=== PATIENT | male | born 2000 | race Two or more races ===

== ENCOUNTER 2024-10-05 10:09 | Inpatient (IN) | payer OTHER, MEDICAID ==
[~2024-10-05] VITALS: Ht 180.3 cm; Wt 125.8 kg
[2024-10-05 11:01] LABS: ALCOHOL, URINE DRUG SCREEN NEGATIVE (NEGATIVE); AMPHET/METH SCREEN,URINE NEGATIVE (NEGATIVE); BARBITURATE SCREEN, URINE NEGATIVE (NEGATIVE); BENZODIAZEPINES SCREEN,URINE NEGATIVE (NEGATIVE); CANNABINOID SCREEN,URINE POSITIVE (NEGATIVE); COCAINE SCREEN,URINE NEGATIVE (NEGATIVE); METHADONE SCREEN, URINE NEGATIVE (NEGATIVE); OPIATE SCREEN,URINE NEGATIVE (NEGATIVE); PHENCYCLIDINE SCREEN,URINE NEGATIVE (NEGATIVE)
[2024-10-05 11:02] LABS: BASOPHILS % (AUTO) 0.4 % (0.0-2.0); EOSINOPHILS % (AUTO) 0.4 % (1.0-6.0); HEMATOCRIT 45.8 % (41-53); HEMOGLOBIN 15.4 g/dL (13.5-17.5); LYMPHOCYTES # (AUTO) 1.6 K/uL (1.0-4.8); LYMPHOCYTES % (AUTO) 22.7 % (22.0-44.0); MEAN CORPUSCULAR HEMOGLOBIN 31.2 pg (26.0-34.0); MEAN CORPUSCULAR HGB CONC 33.7 G/dL (31.0-37.0); MEAN CORPUSCULAR VOLUME 93 fL (80-100); MONOCYTES # (AUTO) 0.5 K/uL (0.1-1.0); MONOCYTES % (AUTO) 7.2 % (2.0-9.0); NEUTROPHILS % (AUTO) 69.3 % (40.0-70.0); PLATELET COUNT (AUTO) 258 K/uL (150-450); RED BLOOD CELL COUNT(AUTO) 4.94 MIL/uL (4.50-5.90); RED CELL DISTRIBUTION WIDTH 13.7 % (11.5-14.5); WHITE BLOOD COUNT (AUTO) 7.2 K/uL (4.5-11.0)
[2024-10-05 11:10] LABS: ANION GAP 9 mmol/L (8-16); CALCIUM, TOTAL 9.1 mg/dL (8.8-10.5); CARBON DIOXIDE 27 mmol/L (22-29); CHLORIDE 103 mmol/L (98-107); CREATININE 0.89 mg/dL (0.60-1.30); GLOMERULAR FILTR. RATE CALC > 60 mL/min (>60); GLUCOSE,RANDOM 92 mg/dL (70-110); SODIUM SERUM 139 mmol/L (136-145); UREA NITROGEN, BLOOD 15 mg/dL (7-18)
[2024-10-05 11:44] LABS: ALCOHOL, BLOOD (SERUM) < 3 mg/dL (0-10)
[2024-10-05] MEDS: HALOPERIDOL LACTATE 5 MG/ML VIAL IM ONE (13:12)
[2024-10-05] MEDS: DiphenhydrAMINE HCL 50 MG/ML VIAL IM ONE (13:12)
[2024-10-05] MEDS: LORazepam 2 MG/ML VIAL IM ONE (13:12)
[2024-10-05] MEDS ORDERED: ACETAMINOPHEN 325 MG TABLET PO PRN (14:00)
[2024-10-05] MEDS ORDERED: HydrOXYzine PAMOATE 50 MG CAPSULE PO PRN (14:00)
[2024-10-05] MEDS ORDERED: LOPERAMIDE HCL 2 MG CAPSULE PO PRN (14:00)
[2024-10-05] MEDS ORDERED: PROMETHAZINE HCL 25 MG TABLET PO PRN (14:00)
[2024-10-05] MEDS ORDERED: GuaiFENesin/D-METHORPHAN [SUGAR-FREE] 200-20MG/10 ML SYRUP UDCUP PO PRN (14:00)
[2024-10-05] MEDS ORDERED: MAG HYDROX/ALUMINUM HYD/SIMETH ES 30 ML SUSPENSION UDCUP PO PRN (14:00)
[2024-10-05] MEDS ORDERED: MAGNESIUM HYDROXIDE SUSPENSION 30 ML UDCUP PO PRN (14:00)
[2024-10-05] MEDS: TUBERCULIN, PURIFIED PROTEIN DERIVATIVE 5 TU/0.1 ML SYRINGE ID ONE (14:14)
[2024-10-05 15:10] LABS: COVID AG,FIA SOURCE NASAL SWAB
[2024-10-05] MEDS: PALIPERIDONE PALMITATE 234 MG/1.5 ML SYRINGE IM ONE (15:13)
[2024-10-05 15:44] LABS: SARS-COV2 (COVID) ANTIGEN,FIA Negative (Negative)
[2024-10-05] MEDS: DIVALPROEX SODIUM 250 MG ER TABLET PO SCH (22:49)
[2024-10-05] MEDS: MELATONIN 5 MG TABLET PO SCH (22:50)
[2024-10-05] MEDS: THIAMINE 100 MG TABLET PO SCH (22:50)
[2024-10-05] MEDS: OLANZapine 5 MG RAPDIS TABLET PO SCH (22:50)
[2024-10-06 06:57] LABS: HEMOGLOBIN A1C 4.9 % (3.8-5.6)
[2024-10-06 07:18] LABS: CHOL/HDL RATIO 3.6 (4.2-7.3); FREE T4 (FREE THYROXINE) 1.04 ng/dL (0.76-1.46); THYROID STIMULATING HORMONE 2.82 uIU/mL (0.36-3.74)
[2024-10-06] MEDS: MULTIVITAMINS WITH MINERALS, THERAPEUTIC TABLET PO SCH (08:06)
[2024-10-06] MEDS: NALTREXONE HCL 50 MG TABLET PO SCH (09:14)
[2024-10-06] MEDS: FOLIC ACID 1 MG TABLET PO SCH (09:15)
[2024-10-06] MEDS: LORazepam 2 MG TABLET PO PRN (13:01)
[2024-10-06] MEDS: OLANZapine 5 MG RAPDIS TABLET PO PRN (13:02)
[2024-10-06] MEDS ORDERED: INFLUENZA VIRUS VACCINE TVS (6MO+) 2024-25/PF 45 MCG/0.5 ML SYRINGE IM. ONE (15:45)
[2024-10-06 20:15] VITALS: BP 108/59; PULSE 67; RESP 18; TEMP 97.5; O2SAT 99
[2024-10-07 08:09] VITALS: BP 138/77; PULSE 88; RESP 16; TEMP 98.4; O2SAT 100
[2024-10-07 20:18] VITALS: BP 130/77; PULSE 89; RESP 18; TEMP 97.8
[2024-10-08 15:37] VITALS: BP 134/78; PULSE 84; RESP 18; TEMP 97.5; O2SAT 97
[2024-10-08 20:58] VITALS: BP 134/78; PULSE 84; RESP 16; TEMP 97.8; O2SAT 97
[2024-10-09 08:07] VITALS: BP 104/61; PULSE 76; RESP 15; TEMP 97.5; O2SAT 98
[2024-10-09] MEDS: PALIPERIDONE PALMITATE 156 MG/ML SYRINGE IM ONE (15:15)
[2024-10-09 20:34] VITALS: BP 117/67; PULSE 97; RESP 18; TEMP 98
[2024-10-09] MEDS: OLANZapine 10 MG RAPDIS TABLET PO SCH (20:54)
[2024-10-10 08:40] VITALS: BP 145/89; PULSE 86; RESP 17; TEMP 98; O2SAT 100
[2024-10-10 20:46] VITALS: BP 144/89; PULSE 99; RESP 20; TEMP 97.4; O2SAT 99
[2024-10-10 21:55] VITALS: BP 144/89; PULSE 99; RESP 20; TEMP 97.4; O2SAT 99
[2024-10-10] MEDS: ZOLPIDEM TARTRATE 10 MG TABLET PO PRN (22:09)
[2024-10-11 21:00] VITALS: RESP 18
[2024-10-12 09:27] VITALS: BP 114/72; PULSE 88; RESP 17; TEMP 97.6; O2SAT 98
[2024-10-12 20:24] VITALS: BP 102/62; PULSE 76; RESP 18; TEMP 97.6; O2SAT 98
[2024-10-12] MEDS ORDERED: OLAN10TA26 PO (22:17)
[2024-10-12] MEDS ORDERED: NALT50TA33 PO (22:17)
[2024-10-12] MEDS ORDERED: DIVA-85 PO (22:17)
[2024-10-12] MEDS ORDERED: MELA5TAB40 PO (22:17)
== END 2024-10-13 15:24 | disposition home or self-care (01) | DRG 885 ==
LOC: EMS 10:19 → B3A 10-06 09:50
PROVIDERS: ADMIT Psychiatry & Neurology Psychiatry; ATTEND Psychiatry & Neurology Psychiatry
PROC: GZHZZZZ Group Psychotherapy (ICD-10-PCS; principal; 2024-10-06)
PROC: GZ51ZZZ Individual Psychotherapy, Behavioral (ICD-10-PCS; 2024-10-13)
DX: F25.0 Schizoaffective disorder, bipolar type (principal); F60.0 Paranoid personality disorder; Z20.822 Contact with and (suspected) exposure to COVID-19; F17.210 Nicotine dependence, cigarettes, uncomplicated; Z91.148 Patient's other noncompliance with medication regimen for other reason
CPT/HCPCS: 80048; 80061; 80307; 83036; 84439; 84443; 85025; 86592; 99285; G0480; J1200; J1630; J2060